=== PATIENT | male | born 1975 | race Caucasian/White ===

== ENCOUNTER 2018-10-23 15:05 | Emergency (ER) | payer SELFPAY ==
[2018-10-23 15:07] VITALS: BP 140/86; PULSE 105; RESP 15; TEMP 36.7; O2SAT 98; BMI 17.1
--- NOTE | 2018-10-23 15:15 | ED.VIS.GEN ---
History of Present Illness Chief Complaint: Rash Informant: Patient Onset: Days Context: Gradual Onset Timing: Continuous Current Severity: Moderate Maximum Severity: Moderate Narrative: Patient presents to emergency department with rash. He states for the past week, he is noticed a small areas on his arms, chest, back, and legs. He states they look like bites. He describes it as itching. He denies any fevers or chills. He denies any new exposures. He lives by himself. He states that no one else that is coming to contact has had these. He states he does not work outside. He does have a history of shingles, but states this feels different. Prior similar symptoms: No Recent Illness/Hospitalization: No Past Medical History - Allergies and Home Meds Allergies/Adverse Reactions: Allergies No Known Allergies Allergy (Verified 10/23/18 15:06) Primary Care Physician: NOT,DEFINED [Primary Care Provider] - Prior records reviewed: Yes Past Medical History: None Surgical History: no surgical history Lives: Alone Smoking Status: Current some day smoker Alcohol: None Review of Systems General: Denies: Chills, Fever, Sweats Eyes: Denies: Visual changes - bilaterally, Diplopia ENT: Denies: Rhinorrhea, Sore throat Cardiovascular: Denies: Chest pain, Palpitations Respiratory: Denies: Dyspnea, Cough, Dyspnea on exertion Gastrointestinal: Denies: Abdominal pain, Nausea, Vomiting, Diarrhea, Melena, Hematochezia Genitourinary: Denies: Dysuria, Hematuria, Frequency Musculoskeletal: Denies: Back pain, Extremity Pain Skin: Reports: Rash. Denies: Wounds Neurological: Denies: Headache, Weakness, Numbness Physical Exam Vital Signs/Narrative: Vital Signs Temp Pulse Resp BP Pulse Ox 10/23/18 15:07 98.0 F 105 H 15 140/86 H 98 Inital Vital Signs reviewed: Yes General: Well nourished, Well developed, No Acute Distress Head: Normocephalic, Atraumatic Eyes: Perrl, EOMI ENT: Moist mucous membranes, No rhinorrhea Neck: Supple, Nontender Cardiovascular: Regular rate, Regular rhythm, No murmurs Respiratory: No distress, CTA bilaterally, Chest nontender Abdomen: Soft, Nontender, Nondistended, Normal bowel sounds Back: Nontender, Normal Inspection Extremities: Nontender, No edema Skin: Normal color, Rash - Multiple small areas of urticaria. No evidence of cellulitis or vesicles. Neurological: Alert, Oriented x3, Cranial nerves II-XII grossly intact, Normal Strength, Normal Sensation Psychological: Normal affect, Normal Mood Diagnostic/Tx/Re-eval - Medical Decision Making The patient symptoms do seem consistent with some sort of bite. He has in the multiple areas. It does not appear consistent with shingles. I am not sure if it is bedbugs, chiggers, or even mosquitoes. The patient does have a diffuse rash. There is no evidence of cellulitis or vesicles. I am going to treat him with a short burst of prednisone. He is comfortable with this plan of care. ED Disposition - Plan for ED Patient: Diagnosis: Reaction to insect bite Instructions: ALLERGIC REACTION, Insect (General) Prescriptions: Prednisone [Deltasone] 60 mg PO DAILY #15 tab Prescription Printed Referrals: NOT,DEFINED [Primary Care Provider] -
[2018-10-23] MEDS: predniSONE 20 MG Tablet 40 MG PO (15:28)
[2018-10-23 15:41] VITALS: RESP 14
== END 2018-10-23 15:42 | disposition home or self-care (01) ==
LOC: ED 15:40
PROVIDERS: Emergency Provider Emergency Medicine
DX: L50.0 Allergic urticaria (principal); W57.XXXA Bitten or stung by nonvenomous insect and other nonvenomous arthropods, initial encounter; F17.200 Nicotine dependence, unspecified, uncomplicated
CPT/HCPCS: 99283

== ENCOUNTER 2024-01-05 17:50 | Emergency (ER) | payer MEDICAID, SELFPAY ==
[2024-01-05 17:52] VITALS: BP 154/94; PULSE 105; RESP 18; TEMP 36.6; O2SAT 97; BMI 18.8
[2024-01-05 19:51] VITALS: BP 145/90; PULSE 92; RESP 16
[2024-01-05 21:00] VITALS: BP 137/104; PULSE 79; RESP 18; O2SAT 98
--- NOTE | 2024-01-05 22:28 | EX.ED.VIS.EY ---
HPI History of Present Illness Chief Complaint: Eye Problem Informant: patient and spouse/S.O. Narrative Narrative: Patient is a 48-year-old male with past medical history of anxiety and depression. He states for the past 3 to 4 weeks he has been having a pain/headache behind his eyes. He states that there is no change in vision light sensitivity eye discharge or irritation. He denies trauma fevers or chills. He states that in the last week he has had congestion and drainage but that his symptoms have been present prior to the development of his cold. He denies any family history of brain tumor or mass. He states has been trying [id number] medications without symptom improvement and secondary to this comes in for evaluation. [facility] Medical History (Updated 01/11/24 @ 23:[address] Nii Morris, DO) Anxiety Depression Home Medications ?Medication ?Instructions ?Recorded ?Last Taken ?Type prednisone 20 mg tablet 60 mg (3 x 20 mg) PO DAILY #15 tabs 10/23/18 Unknown Rx citalopram 10 mg tablet 10 mg PO DAILY 01/05/24 Unknown History ketorolac 10 mg tablet 10 mg PO 4X/DAY PRN pain 5 days 01/05/24 Unknown Rx #20 tabs oxcarbazepine 300 mg tablet 300 mg PO BID 01/05/24 Unknown History oxcarbazepine 600 mg 600 mg PO BID 01/05/24 Unknown History tablet,extended release 24 hr (Oxtellar XR) rizatriptan 10 mg tablet (Maxalt) See Rx Instructions PO .COMPLEX 01/05/24 Unknown Rx #14 tabs trazodone 50 mg tablet 50 - 100 mg PO QHS 01/05/24 Unknown History Allergy/AdvReac Type Severity Reaction Status Date / Time No Known Allergies Allergy Verified 01/05/24 17:52 Social History Smoking Status: Current every day smoker tobacco type: cigarettes ROS ROS ED Constitutional Constitutional ED: Denies chills or fever(s) Eyes Eyes: Reports other Details: Positive eye pain ; Denies blurry vision, change in vision or diplopia ENT ENT ED: Reports rhinorrhea and other Details: Positive sinus pressure ; Denies sore throat Cardiovascular Cardiovascular: Denies chest pain Respiratory/Chest Respiratory/Chest: Denies cough or dyspnea Gastrointestinal Gastrointestinal: Reports nausea; Denies abdominal pain, diarrhea or vomiting Genitourinary Genitourinary ED: Denies dysuria Musculoskeletal Musculoskeletal: Denies myalgias or neck pain Integumentary Denies rash Neurologic Neurologic: Reports headache(s); Denies paresthesias or weakness Psychiatric Psychiatric: Reports anxiety and depression Hematologic/Lymphatic Hematologic/Lymphatic: Denies easy bleeding or easy bruising EXAM Physical Exam Const Vital Signs: 01/05/24 17:52 01/05/24 19:51 01/05/24 21:00 Temperature 97.9 F Temperature Source Temporal Pulse Rate 105 H 92 79 Respiratory Rate 18 16 18 Blood Pressure 154/94 H 145/90 H 137/104 H Blood Pressure Mean 114 108 115 Pulse Ox 97 98 Oxygen Delivery Method Room Air Room Air Positive well nourished and well developed General Appearance ED: well developed HEENT Reports moist mucous membranes HEENT Narrative: Nasal mucosa is hyperemic and boggy There is cobblestoning the posterior pharynx consistent with sinus drainage without airway edema or compromise No secondary findings to suggest infection Eyes PERRL and EOMs intact bilaterally Eyes Narrative: Pupils are equal reactive to light and accommodation extraocular muscles are intact There is no pain with eye motion No scleral injection. No fullness to the conjunctival No purulent discharge or increased tearing Macula is normal without discoloration/paleness No blood and thunder appearance Neck supple Neck Narrative: No nuchal rigidity or meningeal signs noted Resp normal respiratory effort and clear to auscultation bilaterally Cardio regular rate and regular rhythm Extremity normal to inspection Neuro oriented x3, CN's II-XII intact bilaterally, moves all extremities and no sensory deficits noted Neuro Narrative: Cranial nerves II through XII are grossly intact there are no focal neurologic deficits No pronator drift no dysmetria no truncal ataxia NIH stroke scale score of 0 GCS of 15 Sensorium / Orientation: alert Motor Exam: strength 5/5 throughout Psych mental status grossly normal Skin no rashes or lesions noted and no wounds Lesions: no lesions Rashes: no rashes MDM MDM MDM Narrative Medical decision making narrative: Patient arrived to the ER hypertensive otherwise with stable vital. He reported a headache behind both eyes that occurred daily at roughly the same time. He denied fevers chills trauma history of headache or any family history of brain mass or tumor. I discussed with patient that based on the fact he has had this headache recurrently without history of headache safest option is for head CT in order to rule out mass or bleed as a cause of his recurrent symptoms. He does have reported cold symptoms and there is concern that his headache could be secondary to COVID versus influenza versus RSV versus sinusitis but he states that the symptoms of his headache began prior to the call and therefore this is unlikely. At this time the patient is simply requesting for medication to help reduce his symptoms and does not want testing done. Based on the recurrent nature of the headache the fact is located behind the eyes this is most likely cluster. Patient will be started on Maxalt secondary to this and will be instructed to follow-up with neurology to discuss further testing or treatment options regarding his symptoms. However as he is neurologically intact without signs of obvious infection there is no need for further workup he is otherwise safe for discharge History & Record Review Discussion w/independent historian: Patient and Significant other Discharge Plan Triage Chief Complaint: Eye Problem Other Complaint: Headache ED Provider: Nii Morris Dx/Rx/DC Orders Clinical Impression: Cluster headache syndrome, Anxiety and depression Instructions: ED Headache, Cluster Prescriptions: New ketorolac 10 mg tablet 10 mg PO 4X/DAY PRN (Reason: pain) 5 Days Qty: 20 0RF rizatriptan [Maxalt] 10 mg tablet See Rx Instructions .ROUTE .COMPLEX Qty: 14 0RF Rx Instructions: take 1 tab at onset of headache; if no relief may repeat 1 tab after at least 2 hrs; max = 3 tabs/24 hr No Action prednisone 20 MG tablet 60 mg PO DAILY Qty: 15 0RF Rx Instructions: With food trazodone 50 mg tablet 50 - 100 mg PO QHS citalopram 10 mg tablet 10 mg PO DAILY oxcarbazepine 300 mg tablet 300 mg PO BID oxcarbazepine [Oxtellar XR] 600 mg tablet extended release 24 hr 600 mg PO BID Primary Care Provider: Mick Bacon Referrals: Mick Bacon MD [Primary Care Provider] - Activity Restrictions/Additional Instructions: Please follow up with your family doctor for repeat evaluation. If symptoms are persisting despite the prescribed medication discussed with him potential ophthalmology referral and/or imaging of your brain such as CT or MRI and return to the ER should you have any further concern Print Language: Micronesian Disposition Disposition: Home, Self Care Discharge Date/Time: 01/05/24 23:22
[2024-01-05] MEDS: Ketorolac 30 MG/ML Syringe IM (22:44)
[2024-01-05] MEDS: SUMAtriptan 6 MG/0.5 ML Vial SC (22:44)
[2024-01-05 23:00] VITALS: BP 147/80; PULSE 78; RESP 18; O2SAT 98
== END 2024-01-05 23:22 | disposition home or self-care (01) ==
PROVIDERS: Emergency Provider Emergency Medicine; PCP Family Medicine; Visit Provider Emergency Medicine
DX: G44.009 Cluster headache syndrome, unspecified, not intractable (principal); F41.9 Anxiety disorder, unspecified; F32.A Depression, unspecified; F17.210 Nicotine dependence, cigarettes, uncomplicated; Z79.899 Other long term (current) drug therapy
CPT/HCPCS: 96372; 99283; J3030